=== PATIENT | female | born 1960 | race African-American/Black ===

== ENCOUNTER 2018-04-06 13:41 | Inpatient (IN) | payer MEDICARE, MEDICAID ==
[~2018-04-06] VITALS: Ht 160 cm; Wt 103.0 kg
[~2018-04-06 13:41] MED LIST: FERR-43 PO
[2018-04-06 16:12] LABS: BASOPHILS % 0.8 % (0.0-2.0); CHLORIDE 102 mEq/L (98-107); EOSINOPHILS % 1.2 % (0.0-5.0); HEMATOCRIT. 40.9 % (36.0-48.0); HEMOGLOBIN. 13.7 g/dL (12.0-16.0); LYMPHOCYTES % 34.1 % (20.0-50.0); MEAN CORPUSCULAR HEMOGLOBIN 30.4 pg (28.0-32.0); MEAN CORPUSCULAR VOLUME 90.7 fL (81.0-99.0); MEAN PLATELET VOLUME 8.6 fl (7.4-10.4); NEUTROPHILS % 56.9 % (40.0-76.0); PLATELET 297 x1000/uL (130-400); RED CELL DISTRIBUTION WIDTH 14.8 % (11.6-14.6)
[2018-04-06 16:17] LABS: ETHANOL BLOOD < 10 mg/dL
[2018-04-06 16:20] LABS: LDL CHOLESTEROL 104 mg/dL (5-100)
[2018-04-06 16:29] LABS: CLARITY URINE TURBID (CLEAR); COLOR URINE YELLOW (YELLOW); KETONES URINE NEGATIVE (NEGATIVE); LEUKOCYTE ESTERASE URINE TRACE (NEGATIVE); NITRITE URINE NEGATIVE (NEGATIVE); OCCULT BLOOD URINE TRACE (NEGATIVE); PH URINE 5.5 (4.5-8.0); PROTEIN URINE NEGATIVE (NEGATIVE); SPECIFIC GRAVITY URINE 1.019 (1.005-1.030); UROBILINOGEN URINE 0.2 E.U./dL (0.2-1.0)
[2018-04-06 16:42] LABS: *AMPHETAMINES SCREEN URINE NEGATIVE (NEGATIVE); *BARBITURATES SCREEN URINE NEGATIVE (NEGATIVE); *BENZODIAZEPINES SCREEN URINE NEGATIVE (NEGATIVE); METHADONE URINE SCREEN NEGATIVE (NEGATIVE); OPIATES URINE SCREEN NEGATIVE (NEGATIVE)
[2018-04-06 16:43] LABS: CANNABINOID URINE SCREEN NEGATIVE (NEGATIVE); PHENCYCLIDINE URINE SCREEN NEGATIVE (NEGATIVE)
[2018-04-06 16:44] LABS: *COCAINE SCREEN URINE NEGATIVE (NEGATIVE)
[2018-04-06] MEDS ORDERED: ASPIRIN 81MG TABLET PO NR (18:45)
[2018-04-06 18:54] LABS: T4 FREE 1.16 ng/dL (0.76-1.46)
[2018-04-06 21:45] VITALS: BP 169/52
[2018-04-06] MEDS ORDERED: FERR325T6 PO (22:02)
[2018-04-06] MEDS ORDERED: CLONIDINE 0.1MG TABLET PO PRN (23:15)
[2018-04-06] MEDS ORDERED: HYDROCODONE/ACETAMINOPHEN 5/325MG TABLET PO PRN (23:15)
[2018-04-06] MEDS ORDERED: DOCUSATE SODIUM 100MG CAPSULE PO PRN (23:15)
[2018-04-06] MEDS ORDERED: ACETAMINOPHEN 650MG/20.3ML UDC GT PRN (23:15)
[2018-04-06] MEDS ORDERED: IPRATROPIUM/ALBUTEROL 0.5-3(2.5)MG/3ML NEB INH PRN (23:15)
[2018-04-06] MEDS ORDERED: ACETAMINOPHEN 325MG TABLET PO PRN (23:15)
[2018-04-06] MEDS ORDERED: MAGNESIUM/ALUMINUM HYDROXIDE/SIMETHICONE 30ML UDC PO PRN (23:15)
[2018-04-06] MEDS ORDERED: GUAIFENESIN 200MG/10ML SUGAR FREE UDC PO PRN (23:15)
[2018-04-06] MEDS ORDERED: ACETAMINOPHEN 650MG SUPP PR PRN (23:15)
[2018-04-06] MEDS ORDERED: ONDANSETRON HCL 4MG/2ML INJ IV PRN (23:15)
[2018-04-06] MEDS ORDERED: NA PHOS,M-B/NA PHOS,DI-BA ENEMA 118ML PR PRN (23:15)
[2018-04-07] VITALS: BP 156/55
[2018-04-07] MEDS: SODIUM CHLORIDE 0.45% 1,000 ML IV SCH ×2 (00:28→13:20)
[2018-04-07 01:00] VITALS: BP 169/109
[2018-04-07] MEDS: SODIUM CHLORIDE 0.9% INJ 3ML FLUSH IVF SCH ×2 (05:41→14:54)
[2018-04-07 06:49] LABS: BASOPHILS % 0.5 % (0.0-2.0); EOSINOPHILS % 1.7 % (0.0-5.0); HEMATOCRIT. 37.9 % (36.0-48.0); HEMOGLOBIN. 12.6 g/dL (12.0-16.0); LYMPHOCYTES % 37.6 % (20.0-50.0); MEAN CORPUSCULAR HEMOGLOBIN 30.6 pg (28.0-32.0); MEAN CORPUSCULAR VOLUME 91.8 fL (81.0-99.0); MEAN PLATELET VOLUME 8.4 fl (7.4-10.4); NEUTROPHILS % 50.2 % (40.0-76.0); PLATELET 291 x1000/uL (130-400); RED BLOOD CELL COUNT 4.14 mill/uL (4.2-5.4); RED CELL DISTRIBUTION WIDTH 14.8 % (11.6-14.6)
[2018-04-07 06:59] LABS: CHLORIDE 105 mEq/L (98-107)
[2018-04-07 07:29] LABS: LDL CHOLESTEROL 97 mg/dL (5-100)
[2018-04-07 07:30] LABS: HDL CHOLESTEROL 57 mg/dL (40-59)
[2018-04-07 08:00] VITALS: BP 149/73
[2018-04-07 12:00] VITALS: BP 141/73
[2018-04-07] MEDS ORDERED: AMLO5TAB4 MT (13:53)
[2018-04-07 14:54] VITALS: BP 140/70
[2018-04-07 16:00] VITALS: BP 124/68
== END 2018-04-07 19:00 | disposition home or self-care (01) | DRG 74 ==
LOC: ER 15:02 → 7WST 18:46 → EDBEDREQTM 18:50 → EDBEDREQ 18:50 → EDBEDREQSVC 18:50 → ENRESERV 20:20 → 7WST 21:30
PROVIDERS: ADMIT Family Medicine; ATTEND Family Medicine
DX: G90.8 Other disorders of autonomic nervous system (principal); Z68.41 Body mass index [BMI] 40.0-44.9, adult; R29.6 Repeated falls; D32.9 Benign neoplasm of meninges, unspecified; G35 Multiple sclerosis; I10 Essential (primary) hypertension; E66.9 Obesity, unspecified; Z79.899 Other long term (current) drug therapy; Z86.73 Personal history of transient ischemic attack (TIA), and cerebral infarction without residual deficits
CPT/HCPCS: 36415; 71045; 80061; 80305; 82962; 83721; 84439; 84443; 84484; 93005; 97162; 97166; 97535; 99285; G0482